=== PATIENT | male | born 1980 | race Caucasian/White ===

== ENCOUNTER 2017-01-12 08:29 | Emergency (ER) | payer BC, OTHER ==
[2017-01-12 08:57] VITALS: BP 121/73
--- NOTE | 2017-01-12 09:22 | UC ---
Upper Extremity HPI - HPI Summary HPI Summary: atraumatic right wrist pain. he uses the mouse alot. hx of tendonitis of ipsilateral elbow. - History of Current Complaint Chief Complaint: UCUpperExtremity Stated Complaint: RIGHT WRIST INJURY Time Seen by Provider: 01/12/17 08:52 Hx Obtained From: Patient ?: No Onset/Duration: Gradual Onset, Lasting Days Severity Initially: Moderate Severity Currently: Moderate Location Of Pain: Is Discrete @ Character: Sharp, Aching Aggravating Factor(s): Movement, Flexion, Extension Alleviating Factor(s): Elevation Associated Signs And Symptoms: Positive: Swelling, Redness. Negative: Bruising , Fever, Weakness, Numbness/Tingling - Allergies/Home Medications Allergies/Adverse Reactions: Allergies Allergy/AdvReac Type Severity Reaction Status Date / Time Penicillins Allergy Unknown Unknown Verified 01/12/17 08:50 Reaction Details PMH/Surg Hx/FS Hx/Imm Hx Previously Healthy: No - pre diabetic. - Surgical History Surgical History: Yes Surgery Procedure, Year, and Place: RIGHT ANKLE RECONSTRUCTION x2 - Family History Known Family History: Positive: Cardiac Disease, Hypertension, Diabetes - Social History Alcohol Use: Occasionally Substance Use Type: None Smoking Status (MU): Former Smoker Type: Cigars Amount Used/How Often: 4 cigars a year Have You Smoked in the Last Year: Yes When Did the Patient Quit Smoking/Using Tobacco: 07/31/16 - Immunization History Most Recent Influenza Vaccination: NOT THIS SEASON Review of Systems All Other Systems Reviewed And Are Negative: Yes Physical Exam Triage Information Reviewed: Yes Appearance: Well-Appearing, Well-Nourished, Obese Vital Signs: Initial Vital Signs Temp 98 F 01/12/17 08:51 Pulse 68 01/12/17 08:51 Resp 18 01/12/17 08:51 BP 121/73 01/12/17 08:51 Pulse Ox 100 01/12/17 08:51 Vital Signs Reviewed: Yes Eye Exam: Normal ENT Exam: Normal Neck exam: Normal Respiratory Exam: Normal Cardiovascular Exam: Normal Abdominal Exam: Normal Musculoskeletal Exam: Other - right wrist small patch of pink skin. no streaking or induration . this is overlying thumb extensor. finklestein pos. no wrist swelling or effusion. no pain with passive rom. Psychological Exam: Normal Upper Extremity Course/Dx - Course Course Of Treatment: tendonitis. no signs of wrist joint involvment. no signs of cellultiis. - Differential Dx/Diagnosis Provider Diagnoses: tenosynovitis thumb extensor left. Discharge - Discharge Plan Condition: Good Disposition: HOME Prescriptions: Naproxen TAB* [Naprosyn 375 mg TAB*] 375 mg PO Q8H PRN #21 tab PRN Reason: Pain Patient Education Materials: Tenosynovitis (ED) Referrals: Anisa Hudson MD [Primary Care Provider] - If Needed
== END 2017-01-12 09:25 | disposition home or self-care (01) ==
LOC: UCCORT 08:29
DX: M65.842 Other synovitis and tenosynovitis, left hand (principal); R73.03 Prediabetes; E66.9 Obesity, unspecified; Z88.0 Allergy status to penicillin; Z87.891 Personal history of nicotine dependence
CPT/HCPCS: 99213; G0463